=== PATIENT | male | born 1965 | race Caucasian/White ===

== ENCOUNTER → 2024-01-04 06:24 | Outpatient (REF) | payer BC, SELFPAY | LOC: MRI 3T 06:24 | PROVIDERS: ATTENDING PHYSICIAN Family Medicine | DX: M54.16 Radiculopathy, lumbar region (principal); Z87.39 Personal history of other diseases of the musculoskeletal system and connective tissue | CPT/HCPCS: 72148 ==

== ENCOUNTER → 2024-04-07 17:36 | Outpatient (REF) | payer BC, SELFPAY | LOC: HWRAD 17:36 | PROVIDERS: ATTENDING PHYSICIAN Specialist; FAMILY PHYSICIAN Family Medicine; REFERRING PHYSICIAN Internal Medicine Cardiovascular Disease | DX: N20.0 Calculus of kidney (principal) | CPT/HCPCS: 74018 ==

== ENCOUNTER → 2024-05-28 07:11 | Outpatient (REF) | payer BC, SELFPAY | LOC: HWRCS 07:11 | PROVIDERS: ATTENDING PHYSICIAN Internal Medicine Cardiovascular Disease; FAMILY PHYSICIAN Family Medicine | DX: I34.81 Nonrheumatic mitral (valve) annulus calcification (principal) | CPT/HCPCS: 93306 ==

== ENCOUNTER → 2024-08-29 08:10 | Outpatient (REF) | payer BC, SELFPAY | LOC: RAD 08:10 | PROVIDERS: ATTENDING PHYSICIAN Internal Medicine Cardiovascular Disease; FAMILY PHYSICIAN Family Medicine | DX: Z87.891 Personal history of nicotine dependence (principal) | CPT/HCPCS: 71271 ==

== ENCOUNTER → 2024-11-23 16:16 | Outpatient (REF) | payer BC, SELFPAY | LOC: HWRAD 16:16 | PROVIDERS: ATTENDING PHYSICIAN Specialist; FAMILY PHYSICIAN Family Medicine | DX: N20.0 Calculus of kidney (principal) | CPT/HCPCS: 74018 ==

== ENCOUNTER → 2024-12-11 06:12 | Day surgery (SDC) | payer BC, SELFPAY ==
[2024-12-09 13:48] LABS: Hematocrit 44.2 % (39.0-52.0); Hemoglobin 15.1 g/dL (13.0-18.0); Mean Corp Hgb Conc. 34.2 g/dL (33.0-37.0); Mean Corpuscular Hgb 28.8 pg (27.0-31.0); Mean Corpuscular Volume 84.2 fL (80.0-94.0); Mean Platelet Volume 8.7 fL (7.4-10.4); Platelet Count 285 10^3/uL (130-400); Red Blood Cell Count 5.25 10^6/uL (4.70-6.10); Red Cell Dist. Width 12.1 % (11.5-14.5); White Blood Cell Count 14.4 10^3/uL (4.8-10.8)
[2024-12-09 13:50] VITALS: BMI 26.5
[2024-12-09 14:52] LABS: Blood Urea Nitrogen 22 mg/dl (9-20); Calcium 10.1 mg/dl (8.4-10.2); Carbon Dioxide 23 mmol/L (22-30); Chloride 99 mmol/L (98-107); Estimated Creatinine Clearance 116 ml/min; Glucose 112 mg/dl (70-99); Potassium 4.6 mmol/L (3.5-5.1); Sodium 135 mmol/L (135-145); eGFR > 60.00
[2024-12-11] VITALS (9 sets, daily range): BP systolic 125–164; BP diastolic 64–82; BMI 26.5
[2024-12-11] MEDS: NORMOSOL-R/PLASMALYTE-A 1000 IV (07:10)
[2024-12-11] MEDS: ZOFRAN 4 MG IV (10:10)
[2024-12-11] MEDS: Pyridium 200 MG PO (10:25)
[2024-12-11] MEDS: FLOMAX 0.4 MG PO (10:25)
[2024-12-11] MEDS: ULTRAM 50 MG PO (11:01)
== END ==
LOC: SDS 06:12
PROVIDERS: ATTENDING PHYSICIAN Specialist; FAMILY PHYSICIAN Family Medicine
DX: N20.0 Calculus of kidney (principal); N40.0 Benign prostatic hyperplasia without lower urinary tract symptoms
CPT/HCPCS: 52356; 36415; 74420; 76000; 80048; 82365; 85027; 93005; C1758; C1894; C2617

== ENCOUNTER 2025-01-08 06:22 | Day surgery (SDC) | payer BC, SELFPAY ==
[2025-01-08] VITALS (7 sets, daily range): BP systolic 129–144; BP diastolic 64–78; BMI 26.5
[2025-01-08] MEDS: NORMOSOL-R/PLASMALYTE-A 1000 IV (10:08)
[2025-01-08] MEDS: Pyridium 200 MG PO (14:14)
[2025-01-08] MEDS: FLOMAX 0.4 MG PO (14:15)
== END 2025-01-08 15:25 | disposition home or self-care (01) ==
LOC: SDS 06:22
PROVIDERS: ATTENDING PHYSICIAN Specialist
DX: N20.0 Calculus of kidney (principal)
CPT/HCPCS: 52352; 52332; 74420; 76000; 82365; C1758; C1894; C2617

== ENCOUNTER → 2025-04-21 09:18 | Outpatient (REF) | payer BC, SELFPAY | LOC: RAD 09:18 | PROVIDERS: ATTENDING PHYSICIAN Specialist; FAMILY PHYSICIAN Family Medicine | DX: N13.30 Unspecified hydronephrosis (principal) | CPT/HCPCS: 78708; A9539 ==

== ENCOUNTER → 2025-10-22 14:51 | Outpatient (REF) | payer BC, SELFPAY | LOC: HWRAD 14:51 | PROVIDERS: ATTENDING PHYSICIAN Family Medicine | DX: Z87.891 Personal history of nicotine dependence (principal); Z12.2 Encounter for screening for malignant neoplasm of respiratory organs | CPT/HCPCS: 71271 ==